=== PATIENT | male | born 1995 | race Caucasian/White ===

== ENCOUNTER 2017-03-19 22:10 | Emergency (ER) | payer OTHER ==
[2017-03-19 22:21] VITALS: TEMP 98.6; O2SAT 98
--- NOTE | 2017-03-19 22:39 | EDPHY ---
H & P Smoking Status: Never smoked Time Seen by Provider: 03/19/17 22:26 HPI/ROS: CHIEF COMPLAINT: Feeling anxious, near syncope HISTORY OF PRESENT ILLNESS: 21-year-old male presents to the emergency department by private vehicle feeling extremely anxious and feeling like he is going to pass out. Patient has felt like this intermittently for the last 1 week. He denies pain in his chest. He states that he feels extremely anxious and his heart starts racing and then he feels like he is going to pass out. He is studying for finals however he does not feel stressed about his exam. States that he has never had this anxious feeling with activity. It has never woken him up out of his sleep. He tried marijuana for the 1st time 3 months ago and had a syncopal episode. He denies any other substance abuse. REVIEW OF SYSTEMS: Constitutional: No fever, no chills. Eyes: No double or blurry vision. ENT: No sore throat. Respiratory: No cough, no shortness of breath. Cardiac: No chest pain. Gastrointestinal: No abdominal pain, vomiting or diarrhea. Genitourinary: No dysuria. Musculoskeletal: No neck or back pain. Skin: No rashes. Neurological: No headache. (Claudine Austin) Past Medical/Surgical History: Negative (Claudine Austin) Social History: [employer] student studying mechanical engineering from [employer] ( Claudine Austin) Physical Exam: General Appearance: Alert, no distress. Heart rate upon my examination was 110. 129/87, 98% on room air Eyes: Pupils equal and round. Extraocular motions are all intact. ENT: Mouth: Mucous membranes moist. Respiratory: No wheezing, rhonchi, or rales, lungs are clear to auscultation. Cardiovascular: Regular rate and rhythm. Tachycardic. Gastrointestinal: Abdomen is soft and nontender, no masses, no rebound or guarding, bowel sounds normal. Neurological: Alert and oriented x 3, cranial nerves II through XII grossly intact Skin: Warm and dry, no rashes. Musculoskeletal: Nontender to palpate along the cervical, thoracic or lumbar spine. Neck is supple. Extremities: Full range of motion and no peripheral edema. Psychiatric: Patient is oriented X 3, there is no agitation. (Claudine Austin) Constitutional: Initial Vital Signs Temperature (C) 37 C 04/30/17 22:16 Heart Rate 93 03/19/17 22:16 Respiratory Rate 18 03/19/17 22:16 Blood Pressure 129/87 H 03/19/17 22:16 O2 Sat (%) 98 03/19/17 22:16 O2 Delivery Mode Room Air Allergies/Adverse Reactions: No Known Allergies Allergy (Unverified 03/19/17 22:21) Home Medications: Medication Instructions Recorded NK [No Known Home Meds] 03/19/17 Medical Decision Making - Diagnostics EKG Interpretation: EKG: Complete interpretation has been separately recorded in the [employer] archive. Summary impression: Normal sinus rhythm (Mulu Hancock) ED Course/Re-evaluation: 21-year-old male presents to the emergency department feeling extremely anxious and feeling like he is going to have a syncopal episode. Laboratory studies revealed normal CBC and normal chemistries. His troponin was negative. He did tell me that his father had a heart attack in his 40s. The patient had an IV established and was given 0.5 mg of IV lorazepam and IV normal saline. Upon discharge he was feeling much better. The case was discussed with Dr. Hancock, secondary supervising physician, who did not directly evaluate the patient but agrees with treatment and plan. (Claudine Austin) PHYSICIAN DOCUMENTATION: The patient was evaluated and managed by the Physician Manager Motor. My co- signature indicates that I have reviewed this chart and I agree with the findings and plan of care as documented. I am the secondary supervising physician. (Mulu Hancock) Differential Diagnosis: Including but not limited to anxiety, electrolyte abnormality, vasovagal syncope , arrhythmia, dehydration, and blood loss. (Claudine Austin) - Data Points Laboratory Results: Laboratory Results 03/19/17 22:45 03/19/17 22:45 03/19/17 03/19/17 22:45 22:45 WBC 9.10 10^3/uL 10^3/uL (3.80-9.50) RBC 5.53 10^6/uL 10^6/uL (4.40-6.38) Hgb 16.1 g/dL g/dL (13.7-17.5) Hct 46.6 % % (40.0-51.0) MCV 84.3 fL fL (81.5-99.8) MCH 29.1 pg pg (27.9-34.1) MCHC 34.5 g/dL g/dL (32.4-36.7) RDW 12.5 % % (11.5-15.2) Plt Count 228 10^3/uL 10^3/uL (150-400) MPV 11.2 fL fL (8.7-11.7) Neut % (Auto) 66.7 % % (39.3-74.2) Lymph % (Auto) 26.3 % % (15.0-45.0) [place] % (Auto) 5.9 % % (4.5-13.0) Eos % (Auto) 0.5 % L % (0.6-7.6) Baso % (Auto) 0.3 % % (0.3-1.7) Nucleat RBC Rel Count 0.0 % % (0.0-0.2) Absolute Neuts (auto) 6.06 10^3/uL 10^3/uL (1.70-6.50) Absolute Lymphs (auto) 2.39 10^3/uL 10^3/uL (1.00-3.00) Absolute Monos (auto) 0.54 10^3/uL 10^3/uL (0.30-0.80) Absolute Eos (auto) 0.05 10^3/uL 10^3/uL (0.03-0.40) Absolute Basos (auto) 0.03 10^3/uL 10^3/uL (0.02-0.10) Absolute Nucleated RBC 0.00 10^3/uL 10^3/uL (0-0.01) Immature Gran % 0.3 % % (0.0-1.1) Immature Gran # 0.03 10^3/uL 10^3/uL (0.00-0.10) Sodium 140 mEq/L mEq/L (134-144) Potassium 3.8 mEq/L mEq/L (3.5-5.2) Chloride 106 mEq/L mEq/L (97-110) Carbon Dioxide 22 mEq/l mEq/l (22-31) Anion Gap 12 mEq/L mEq/L (8-16) BUN 10 mg/dL mg/dL (7-23) Creatinine 0.9 mg/dL mg/dL (0.7-1.3) Estimated GFR > 60 Glucose 110 mg/dL H mg/dL (70-100) Calcium 9.7 mg/dL mg/dL (8.5-10.4) Troponin I < 0.012 ng/mL ng/mL (0-0.034) Medications Given: Discontinued Medications Sodium Chloride (Ns) 1,000 mls @ 0 mls/hr IV ONCE ONE PRN Reason: Wide Open Stop: 03/19/17 22:47 Last Admin: 03/19/17 22:52 Dose: 1,000 mls Lorazepam (Ativan Injection) 0.5 mg IVP EDNOW ONE Stop: 03/19/17 22:47 Last Admin: 03/19/17 22:52 Dose: 0.5 mg Departure - Departure Disposition: Home, Routine, Self-Care Clinical Impression: Anxiety, Near syncope Condition: Good Instructions: Near Syncope (ED), Anxiety (ED) Additional Instructions: Return to the emergency department if you develop recurring symptoms of anxiety , if he developed pain in your chest, or if you feel worse in any way. Avoid caffeine as discussed. Referrals: Du Ramos [place] [place] - 1 day, if not improved ( Primary care provider in [place]) JACQUELIN Glaser,. [Clinic] - 1 day, if not improved
--- NOTE | 2017-03-19 22:45 | CPEKG ---
Heart Rate: 95 RR Interval: 632 P-R Interval: 172 QRSD Interval: 92 QT Interval: 348 QTC Interval: 438 P [place]: 82 QRS [place]: 90 T Wave [place]: 66 EKG Severity - ABNORMAL ECG - EKG Impression: SINUS RHYTHM EKG Impression: PROBABLE LEFT ATRIAL ABNORMALITY EKG Impression: BORDERLINE RIGHT AXIS DEVIATION Electronically Signed By: Mulu Hancock 20-Mar-2017 07:08:26
[2017-03-19] MEDS ORDERED: LORazepam 2 MG/ML INJ IVP ONE (22:46)
[2017-03-19] MEDS ORDERED: NS 1,000 ML IV ONE (22:46)
[2017-03-19 22:51] LABS: % IMMATURE GRANULYOCYTES 0.3 % (0.0-1.1); ABSOLUTE IMMATURE GRANULOCYTES 0.03 10^3/uL (0.00-0.10); ADD DIFF? NO; ADD MORPH? NO; ADD SCAN? NO; ATYPICAL LYMPHOCYTE FLAG 0 (0-99); FRAGMENT RBC FLAG 0 (0-99); HEMATOCRIT 46.6 % (40.0-51.0); HEMOGLOBIN 16.1 g/dL (13.7-17.5); LEFT SHIFT FLG 0 (0-99); LIPEMIA HEMOLYSIS FLAG 90 (0-99); MEAN CELL HEMOGLOBIN 29.1 pg (27.9-34.1); MEAN CELL HEMOGLOBIN CONCENTR. 34.5 g/dL (32.4-36.7); MEAN CELL VOLUME 84.3 fL (81.5-99.8); MEAN PLATELET VOLUME 11.2 fL (8.7-11.7); PLATELET CLUMPS FLAG 0 (0-99); PLATELET COUNT 228 10^3/uL (150-400); RED BLOOD CELL COUNT 5.53 10^6/uL (4.40-6.38); RED CELL DISTRIBUTION WIDTH 12.5 % (11.5-15.2)
[2017-03-19 23:07] LABS: ANION GAP 12 mEq/L (8-16); CALCIUM 9.7 mg/dL (8.5-10.4); CARBON DIOXIDE 22 mEq/l (22-31); CHLORIDE 106 mEq/L (97-110); CREATININE 0.9 mg/dL (0.7-1.3); GLOMERULAR FILTRATION RATE > 60; GLUCOSE 110 mg/dL (70-100); POTASSIUM 3.8 mEq/L (3.5-5.2); SODIUM 140 mEq/L (134-144)
[2017-03-19 23:18] LABS: TROPONIN I < 0.012 ng/mL (0-0.034)
--- NOTE | 2017-03-19 23:41 | CPEKG ---
Heart Rate: 81 RR Interval: 741 P-R Interval: 192 QRSD Interval: 90 QT Interval: 376 QTC Interval: 437 P [place]: 78 QRS [place]: 90 T Wave [place]: 73 EKG Severity - ABNORMAL ECG - EKG Impression: SINUS RHYTHM EKG Impression: BORDERLINE RIGHT AXIS DEVIATION Electronically Signed By: Mulu Hancock 20-Mar-2017 07:08:11
[2017-03-19 23:56] VITALS: BP 143/75; PULSE 76; RESP 14
== END 2017-03-20 00:06 | disposition home or self-care (01) ==
DX: R55 Syncope and collapse (principal); F41.9 Anxiety disorder, unspecified
CPT/HCPCS: 96374; J2060

== ENCOUNTER 2017-03-20 19:42 | Emergency (ER) | payer OTHER ==
[2017-03-20 20:02] VITALS: O2SAT 99
[2017-03-20] MEDS ORDERED: LORazepam 1 MG TAB PO ONE (20:57)
--- NOTE | 2017-03-20 21:22 | EDPHY ---
H & P Stated Complaint: trembling Time Seen by Provider: 03/20/17 19:53 HPI/ROS: CHIEF COMPLAINT: Anxiety HISTORY OF PRESENT ILLNESS: The this is a 21-year-old male presenting to the emergency department complaining anxiety. Patient was seen last night here in the ED for same symptoms, patient states he was feeling fine when he left. Woke up this morning about 8 o'clock started normal activities, but then started feeling anxious, breathing heavily with some hand tingling. Patient states he does on occasion smoke marijuana, last use was a few days ago prior to onset of symptoms. Patient states he is under lot of stress due to school taking 5 classes this semester, he is declining to call his parents back home in [facility] to let them know what is going on. Patient is here at [facility], no family here or support system here. Patient does not report suicidal ideation or homicidal ideation or paranoia. Patient does report insomnia due to environmental stressors of school. Denies any medical problems or history of psych problems REVIEW OF SYSTEMS: Constitutional: No fever, no chills. Insomnia Eyes: No visual changes. ENT: No sore throat Respiratory: No cough, no shortness of breath. Cardiac: No chest pain. Gastrointestinal: No abdominal pain no nausea vomiting Musculoskeletal: No back pain. Hand tingling Skin: No rashes. Neurological: No headache. Source: Patient - Personal History Current Tetanus/Diphtheria Vaccine: No - Medical/Surgical History Hx Asthma: No Hx Chronic Respiratory Disease: No Hx Diabetes: No Hx Cardiac Disease: No Hx Renal Disease: No Hx Cirrhosis: No Hx Alcoholism: No Hx HIV/AIDS: No Hx Splenectomy or Spleen Trauma: No Other PMH: PSHx: denies. PMHx: denies - Social History Smoking Status: Never smoked - Physical Exam Exam: General Appearance: Alert, no distress. Eyes: Pupils equal and round no pallor or injection. ENT, Mouth: Mucous membranes moist. Respiratory: There are no retractions, lungs are clear to auscultation. Cardiovascular: Regular rate and rhythm. Gastrointestinal: Abdomen is soft and nontender, no masses, bowel sounds normal. Neurological: No focal deficits. Ambulatory with steady gait. Equal bilateral asset protection officer strength. Acting appropriate Skin: Warm and dry, no rashes. No pallor Musculoskeletal: Neck is supple nontender. Extremities: symmetrical, full range of motion. Psychiatric: Patient is oriented X 3, there is no agitation. calm acting appropriate Constitutional: Initial Vital Signs Temperature (C) 36.9 C 03/20/17 19:59 Heart Rate 92 03/20/17 19:59 Respiratory Rate 22 H 03/20/17 19:59 Blood Pressure 123/74 H 03/20/17 19:59 O2 Sat (%) 99 03/20/17 19:59 O2 Delivery Mode Room Air Allergies/Adverse Reactions: No Known Allergies Allergy (Unverified 03/19/17 22:21) Home Medications: Medication Instructions Recorded LORazepam [Ativan] 0.5 mg PO PRN PRN #4 tablet 03/20/17 Medical Decision Making ED Course/Re-evaluation: Discussed the plan of care: Reviewed medical records from last night's visit. Ativan 5 mg p.o. given 2129: Patient AAOx3, not in any distress states feeling tired but no anxiety 2244: Patient feeling better, ready to go home Discussed discharge instructions the patient I recommended he call his parents let them know with going on, also recommended rest the proper food intake, along with increasing fluid intake. Follow up at [facility] tomorrow or day after tomorrow patient was given a prescription for few tablets of Ativan to use as needed for anxiety Differential Diagnosis: Differential diagnosis considered but not limited to panic attack, paranoia and syncope - Data Points Medications Given: Discontinued Medications Lorazepam (Ativan) 1 mg PO EDNOW ONE Stop: 03/20/17 20:58 Last Admin: 03/20/17 21:21 Dose: 1 mg Departure - Departure Disposition: Home, Routine, Self-Care Clinical Impression: Anxiety Condition: Good Instructions: Stress (ED), Anxiety (ED) Additional Instructions: Discussed discharge instructions 1. Decrease environmental stressors, take a break from her studies as needed 2. Increase your dietary intake. Breakfast is the most important meal of the day. Increase your fluid intake as dehydration can make you feel worse 3. Follow up with [facility] tomorrow or day after tomorrow 4. Do not use marijuana as this can make symptoms worse 5. If at any point time you feel symptoms have worsened, any chest pain, syncope return to the emergency department Referrals: NONE *PRIMARY CARE P,. [Primary Care Provider] - As per Instructions [facility]A [facility],. [Clinic] - As per Instructions Prescriptions: LORazepam [Ativan] 0.5 mg PO PRN PRN #4 tablet PRN Reason: Anxiety
[2017-03-20 23:23] VITALS: BP 135/83; PULSE 68; RESP 18; TEMP 98.1
== END 2017-03-20 23:26 | disposition home or self-care (01) ==
DX: F41.9 Anxiety disorder, unspecified (principal)

== ENCOUNTER 2017-03-25 20:51 | Emergency (ER) | payer OTHER ==
[2017-03-25 21:00] VITALS: TEMP 98.2; O2SAT 97
--- NOTE | 2017-03-25 21:28 | EDPHY ---
H & P Stated Complaint: ANXIETY SEEN ON MON FOR SAME, HAS APT, FINALS ECT Source: Patient, Old records - Personal History Current Tetanus/Diphtheria Vaccine: Yes Current Tetanus Diphtheria and Acellular Pertussis (TDAP): Yes - Medical/Surgical History Hx Asthma: No Hx Chronic Respiratory Disease: No Hx Diabetes: No Hx Cardiac Disease: No Hx Renal Disease: No Hx Cirrhosis: No Hx Alcoholism: No Hx HIV/AIDS: No Hx Splenectomy or Spleen Trauma: No Other PMH: PSHx: denies. PMHx: ANXIETY - Social History Smoking Status: Never smoked Time Seen by Provider: 03/25/17 21:21 HPI/ROS: CHIEF COMPLAINT: Lightheadedness HISTORY OF PRESENT ILLNESS: This is a 21-year-old male presenting to the emergency department complaining of feeling lightheaded, dizzy " I feel like Im going to pass out" patient has been seen here on multiple occasions for symptoms of anxiety. Patient also states that he has finals next week he has been feeling more anxious, more intense feeling of lightheaded. He reports being seen at [facility], he stated they said it was more of an anxiety related issue panic attack. Patient states he feels it is more than that. Denies any chest pain or shortness of breath REVIEW OF SYSTEMS: Constitutional: No fever, no chills. No appetite changes Eyes: No discharge. ENT: No sore throat. Cardiovascular: No chest pain, no palpitations. Respiratory: No cough, no shortness of breath. Gastrointestinal: No abdominal pain, no vomiting. Genitourinary: No hematuria. Musculoskeletal: No back pain. Skin: No rashes. Neurological: No headache. Dizziness and lightheaded, anxious (Kiana Shine) - Physical Exam Exam: General Appearance: Alert, no distress. Eyes: Pupils equal and round no pallor or injection. ENT, Mouth: Mucous membranes moist. Respiratory: There are no retractions, lungs are clear to auscultation. Cardiovascular: Regular rate and rhythm. Gastrointestinal: Abdomen is soft and nontender, no masses, bowel sounds normal. Neurological: No focal deficits. Ambulatory without gait disturbance Skin: Warm and dry, no rashes. No pallor Musculoskeletal: Neck is supple nontender. Equal bilateral chief operator synthesis strength no general weakness noted Extremities are symmetrical, full range of motion. Psychiatric: Patient is oriented X 3, there is no agitation. (Kiana Shine) Constitutional: Initial Vital Signs Temperature (C) 36.8 C 03/25/17 20:58 Heart Rate 93 03/25/17 20:58 Respiratory Rate 18 03/25/17 20:58 Blood Pressure 118/79 03/25/17 20:58 O2 Sat (%) 97 03/25/17 20:58 O2 Delivery Mode Room Air Allergies/Adverse Reactions: No Known Allergies Allergy (Unverified 03/25/17 21:00) Home Medications: Medication Instructions Recorded LORazepam [Ativan] 0.5 mg PO PRN PRN #4 tablet 03/20/17 Medical Decision Making ED Course/Re-evaluation: The patient was evaluated and managed by the TASTE TESTER. My cosignature indicates that I reviewed the chart and I agree with the findings and plan of care as documented. I am the secondary supervising physician. (Giulia Lowe) Discussed the plan of care: CBC, CMP, EKG 2300: Discussed all results with patient. Discussed following up with licensed clinical social media strategist at [facility] and your appointment at [facility] on Monday: Not in any distress, calm, no SI or HI. Patient feels comfortable going home and getting some rest discharge home--> stable. (Kiana Shine) Differential Diagnosis: Other differential diagnosis considered not limited to syncope, panic attack and suicidal ideation (Kiana Shine) - Data Points Laboratory Results: Laboratory Results 03/25/17 22:25 03/25/17 22:25 03/25/17 03/25/17 03/25/17 23:11 22:25 22:25 WBC RBC Hgb Hct MCV MCH MCHC RDW Plt Count MPV Neut % (Auto) Lymph % (Auto) [place] % (Auto) Eos % (Auto) Baso % (Auto) Nucleat RBC Rel Count Absolute Neuts (auto) Absolute Lymphs (auto) Absolute Monos (auto) Absolute Eos (auto) Absolute Basos (auto) Absolute Nucleated RBC Immature Gran % Immature Gran # Sodium 140 mEq/L mEq/L (134-144) Potassium 4.3 mEq/L mEq/L (3.5-5.2) Chloride 101 mEq/L mEq/L (97-110) Carbon Dioxide 27 mEq/l mEq/l (22-31) Anion Gap 12 mEq/L mEq/L (8-16) BUN 10 mg/dL mg/dL (7-23) Creatinine 1.0 mg/dL mg/dL (0.7-1.3) Estimated GFR > 60 Glucose 90 mg/dL mg/dL (70-100) Calcium 10.1 mg/dL mg/dL (8.5-10.4) Urine Opiates Screen NEGATIVE (NEGATIVE) Urine Barbiturates NEGATIVE (NEGATIVE) Ur Phencyclidine Scrn NEGATIVE (NEGATIVE) Ur Amphetamine Screen NEGATIVE (NEGATIVE) U Benzodiazepines Scrn NEGATIVE (NEGATIVE) Urine Cocaine Screen NEGATIVE (NEGATIVE) U Marijuana (THC) Screen NEGATIVE (NEGATIVE) Ethyl Alcohol < 10 mg/dL mg/dL (0-10) 03/25/17 22:25 WBC 7.98 10^3/uL 10^3/uL (3.80-9.50) RBC 5.97 10^6/uL 10^6/uL (4.40-6.38) Hgb 16.7 g/dL g/dL (13.7-17.5) Hct 49.4 % % (40.0-51.0) MCV 82.7 fL fL (81.5-99.8) MCH 28.0 pg pg (27.9-34.1) MCHC 33.8 g/dL g/dL (32.4-36.7) RDW 12.2 % % (11.5-15.2) Plt Count 231 10^3/uL 10^3/uL (150-400) MPV 11.1 fL fL (8.7-11.7) Neut % (Auto) 48.7 % % (39.3-74.2) Lymph % (Auto) 41.4 % % (15.0-45.0) [place] % (Auto) 7.9 % % (4.5-13.0) Eos % (Auto) 1.4 % % (0.6-7.6) Baso % (Auto) 0.5 % % (0.3-1.7) Nucleat RBC Rel Count 0.0 % % (0.0-0.2) Absolute Neuts (auto) 3.89 10^3/uL 10^3/uL (1.70-6.50) Absolute Lymphs (auto) 3.30 10^3/uL H 10^3/uL (1.00-3.00) Absolute Monos (auto) 0.63 10^3/uL 10^3/uL (0.30-0.80) Absolute Eos (auto) 0.11 10^3/uL 10^3/uL (0.03-0.40) Absolute Basos (auto) 0.04 10^3/uL 10^3/uL (0.02-0.10) Absolute Nucleated RBC 0.00 10^3/uL 10^3/uL (0-0.01) Immature Gran % 0.1 % % (0.0-1.1) Immature Gran # 0.01 10^3/uL 10^3/uL (0.00-0.10) Sodium Potassium Chloride Carbon Dioxide Anion Gap BUN Creatinine Estimated GFR Glucose Calcium Urine Opiates Screen Urine Barbiturates Ur Phencyclidine Scrn Ur Amphetamine Screen U Benzodiazepines Scrn Urine Cocaine Screen U Marijuana (THC) Screen Ethyl Alcohol Departure - Departure Disposition: Home, Routine, Self-Care Clinical Impression: Anxiety and depression Condition: Good Instructions: Generalized Anxiety Disorder (ED) Additional Instructions: Discussed discharge instructions 1. We discussed the stress and finals this may be a component to his anxiety 2. I recommend going home and a relaxing tonight and tomorrow without studying. 3. You have an appointment on Monday with [facility] please do not miss this appointment. I have also given you resources at [facility] for counseling for anxiety Referrals: NONE *PRIMARY CARE P,. [Primary Care Provider] - As per Instructions JACQUELIN STUDENT H,. [Clinic] - As per Instructions
[2017-03-25 22:38] LABS: % IMMATURE GRANULYOCYTES 0.1 % (0.0-1.1); ABSOLUTE IMMATURE GRANULOCYTES 0.01 10^3/uL (0.00-0.10); ADD DIFF? NO; ADD MORPH? NO; ADD SCAN? NO; ATYPICAL LYMPHOCYTE FLAG 20 (0-99); FRAGMENT RBC FLAG 0 (0-99); HEMATOCRIT 49.4 % (40.0-51.0); HEMOGLOBIN 16.7 g/dL (13.7-17.5); LEFT SHIFT FLG 0 (0-99); LIPEMIA HEMOLYSIS FLAG 90 (0-99); MEAN CELL HEMOGLOBIN CONCENTR. 33.8 g/dL (32.4-36.7); MEAN CELL VOLUME 82.7 fL (81.5-99.8); MEAN PLATELET VOLUME 11.1 fL (8.7-11.7); PLATELET CLUMPS FLAG 0 (0-99); PLATELET COUNT 231 10^3/uL (150-400); RED BLOOD CELL COUNT 5.97 10^6/uL (4.40-6.38); RED CELL DISTRIBUTION WIDTH 12.2 % (11.5-15.2)
--- NOTE | 2017-03-25 22:38 | CPEKG ---
Heart Rate: 59 RR Interval: 1017 P-R Interval: 188 QRSD Interval: 96 QT Interval: 416 QTC Interval: 413 P [place]: 48 QRS [place]: 90 T Wave [place]: 76 EKG Severity - ABNORMAL ECG - EKG Impression: SINUS RHYTHM EKG Impression: BORDERLINE RIGHT AXIS DEVIATION EKG Impression: ST ELEVATION SUGGESTS PERICARDITIS Electronically Signed By: Giulia Lowe 25-Mar-2017 23:00:17
[2017-03-25 22:48] LABS: ANION GAP 12 mEq/L (8-16); CALCIUM 10.1 mg/dL (8.5-10.4); CARBON DIOXIDE 27 mEq/l (22-31); CHLORIDE 101 mEq/L (97-110); GLOMERULAR FILTRATION RATE > 60; GLUCOSE 90 mg/dL (70-100); POTASSIUM 4.3 mEq/L (3.5-5.2); SODIUM 140 mEq/L (134-144)
[2017-03-25 23:24] LABS: ETHANOL SERUM < 10 mg/dL (0-10)
[2017-03-26 00:10] VITALS: BP 134/97; PULSE 71; RESP 16
== END 2017-03-26 00:05 | disposition home or self-care (01) ==
DX: F32.9 Major depressive disorder, single episode, unspecified (principal)
CPT/HCPCS: 80305; G0480